=== PATIENT | male | born 1970 | race Caucasian/White ===

== ENCOUNTER 2016-08-18 10:46 | Emergency (ER) | payer OTHER, MEDICAID ==
[2016-08-18] MEDS ORDERED: KETOROLAC 60 MG/2 ML VIAL IM STA (11:44)
[2016-08-18] MEDS ORDERED: DEXAMETHASONE 10 MG/ML VIAL PO STA (11:44)
[2016-08-18] MEDS ORDERED: DEXAMETHASONE 10 MG/ML VIAL ONE (11:46)
[2016-08-18] MEDS ORDERED: KETOROLAC 60 MG/2 ML VIAL ONE (11:46)
--- NOTE | 2016-08-18 12:31 | ED Physician Documentation ---
PD HPI BACK PAIN - Stated complaint Stated Complaint: BACK INJURY - Chief complaint Chief Complaint: Back Pain - History obtained from History obtained from: Patient, Family (spouse) - History of Present Illness Timing - onset: Yesterday Timing - details: Still present Location: Lower, Right, Left Quality: Pain Associated symptoms: No: Fever, Weakness, Numbness, Incontinent of urine Worsened by: No: Movement, Twisting Contributing factors: Twisting Similar symptoms before: Has not had sx before - Additional information Additional information: The patient is a 46-year-old male who presents with lower back pain that started yesterday when he was stooping over and twisted his back. The pain is worse on the left than on the right. It is worse with sitting or standing, and improves when lying supine. He denies fever, urinary incontinence, numbness or weakness. He denies history of similar symptoms in the past. Review of Systems Constitutional: denies: Fever Nose: denies: Congestion Respiratory: denies: Dyspnea, Cough GI: denies: Abdominal Pain, Nausea, Vomiting : denies: Dysuria, Incontinent Skin: denies: Rash Musculoskeletal: reports: Back pain. denies: Neck pain Neurologic: denies: Focal weakness, Numbness, Headache PD PAST MEDICAL HISTORY - Past Medical History Past Medical History: No Cardiovascular: None Respiratory: None Neuro: None Endocrine/Autoimmune: None - Past Surgical History Past Surgical History: Yes - Present Medications Home Medications: Ambulatory Orders Medication Instructions Recorded Confirmed Cyclobenzaprine [Flexeril] 10 mg PO TID PRN #20 tablet 08/18/16 HYDROcod/ACETAM 5/325 [[place] 5/325] 1 - 2 ea PO Q6H PRN #20 tablet 08/18/16 - Allergies Allergies/Adverse Reactions: Allergies Allergy/AdvReac Type Severity Reaction Status Date / Time antiviral AdvReac Headache Uncoded 08/18/16 10:58 - Living Situation Living Situation: reports: With spouse/s.o. Living Arrangement: reports: At home - Social History Does the pt smoke?: No Smoking Status: Never smoker Does the pt drink ETOH?: Yes Does the pt have substance abuse?: No - Immunizations Immunizations are current?: Yes Immunizations: TDAP current <10years - POLST Patient has POLST: No Results - Vitals Vitals: Oxygen O2 Source Room air PD MEDICAL DECISION MAKING - ED course Complexity details: re-evaluated patient, considered differential, d/w patient, d/w family ED course: The patient's presentation is most consistent with low back strain, without sciatica. His presentation does not suggest epidural abscess, cauda equina syndrome, or spinal stenosis. Treatment in the emergency department included administration of ketorolac 60 mg IM and dexamethasone 10. He is being discharged with prescriptions for Flexeril and for Vicodin, 20 tablets. I discussed with him and his the expected course of injury, symptomatic treatment and outpatient follow-up, as well as potentially worrisome signs or symptoms that should prompt reevaluation in the emergency department. Departure - Departure Disposition: Home, Self Care Clinical Impression: Back pain Qualifiers: Back pain location: low back pain Chronicity: acute Back pain laterality: bilateral Sciatica presence: without sciatica Qualified Code(s): M54.5 - Low back pain Condition: Stable Instructions: ED Low Back Pain Injury Follow-Up: [facility] [Provider Group] Prescriptions: Cyclobenzaprine [Flexeril] 10 mg PO TID PRN #20 tablet PRN Reason: Spasms HYDROcod/ACETAM 5/325 [[place] 5/325] 1 - 2 ea PO Q6H PRN #20 tablet PRN Reason: Pain Comments: Apply icepack to your lower back intermittently for the next 3 or 4 days. You can use ibuprofen, up to 800 mg 3 times daily for its anti-inflammatory effect. You can use Vicodin as prescribed if needed for pain. You can use Flexeril as prescribed if needed for muscle spasms. Let pain be your guide to activity level. Follow up with your primary physician within 2 weeks. Call to schedule an appointment. Return to the emergency department if you develop increasing pain, fever, numbness or weakness, urinary incontinence, or otherwise worsening symptoms. Discharge Date/Time: 08/18/16 12:37
[2016-08-18 12:38] VITALS: BP 109/70
== END 2016-08-18 12:37 | disposition home or self-care (01) ==
LOC: ED 10:46
DX: M54.5 Low back pain (principal); X50.0XXA Overexertion from strenuous movement or load, initial encounter
CPT/HCPCS: 1040M; 96372; 99283

== ENCOUNTER 2016-10-13 16:38 | Outpatient (CLI) | payer MEDICAID ==
--- NOTE | 2016-10-14 18:41 | XRAY Report ---
EXAM: LEFT FOOT RADIOGRAPHY EXAM DATE: 10/13/2016 04:50 p.m. CLINICAL HISTORY: Left foot pain. COMPARISON: None. TECHNIQUE: 3 views. FINDINGS: Bones: Normal. No fractures or bone lesions. Joints: Normal. No subluxations. Soft Tissues: Normal. No soft tissue swelling. IMPRESSION: Normal foot radiography. [facility] Referring Provider Line: [phone] SITE ID: [id number]
== END 2016-10-13 16:39 | disposition home or self-care (01) ==
LOC: DI.N 16:38
PROVIDERS: ATTEND Family Medicine
DX: M79.672 Pain in left foot (principal)

== ENCOUNTER 2017-03-28 16:15 | Outpatient (CLI) | payer MEDICAID | END 2017-03-28 16:30 | disposition home or self-care (01) | LOC: RT.N 16:15 | PROVIDERS: ATTEND Family Medicine | DX: M70.88 Other soft tissue disorders related to use, overuse and pressure other site (principal) | CPT/HCPCS: 93005 ==

== ENCOUNTER 2017-03-29 08:00 | Outpatient (CLI) | payer MEDICAID ==
[2017-03-29 12:44] LABS: BASOPHILS % (AUTO) 0.4 %; EOSINOPHILS # (AUTO) 0.1 10^3/uL (0.0-0.7); EOSINOPHILS % (AUTO) 2.3 %; HGB - HEMOGLOBIN 15.8 g/dL (14.0-18.0); LYMPHOCYTES # (AUTO) 1.6 10^3/uL (1.5-3.5); LYMPHOCYTES % (AUTO) 35.7 %; MEAN CORPUSCULAR HEMOGLOBIN 31.5 pg (27.0-31.0); MEAN CORPUSCULAR HGB CONC 33.9 g/dL (32.0-36.0); MEAN CORPUSCULAR VOLUME 92.8 fL (80.0-94.0); MEAN PLATELET VOLUME 9.2 fL (7.4-11.4); MONOCYTES # (AUTO) 0.3 10^3/uL (0.0-1.0); NEUTROPHILS # (AUTO) 2.4 10^3/uL (1.5-6.6); NEUTROPHILS % (AUTO) 54.6 %; PLT - PLATELET COUNT 191 10^3/uL (130-450); RED BLOOD COUNT 5.02 10^6/uL (4.70-6.10); RED CELL DISTRIBUTION WIDTH 12.9 % (12.0-15.0); WHITE BLOOD COUNT 4.5 x10^3/uL (4.8-10.8)
[2017-03-29 13:53] LABS: ALBUMIN 4.1 g/dL (3.2-5.5); ALBUMIN/GLOBULIN RATIO 1.6 (1.0-2.2); ALKALINE PHOSPHATASE 50 IU/L (42-121); ALT ALANINE AMINOTRANSFERASE 55 IU/L (10-60); AST ASPARTATE AMINOTRANSFERASE 36 IU/L (10-42); BILIRUBIN,TOTAL 0.8 mg/dL (0.2-1.0); BUN - BLOOD UREA NITROGEN 15 mg/dL (6-20); CALCIUM 8.7 mg/dL (8.5-10.3); CARBON DIOXIDE - CO2 24 mmol/L (21-32); CHLORIDE 105 mmol/L (101-111); CHOL/HDL RATIO 3.7 (<5.0); CHOLESTEROL 162 mg/dL; CREATININE 1.1 mg/dL (0.6-1.2); GFR - MDRD 71 (>89); GLUCOSE 87 mg/dL (70-100); HDL CHOLESTEROL 44 mg/dL; LDL CHOLESTEROL,CALCULATED 101 mg/dL; LDL/HDL RATIO 2.3 (<3.6); SODIUM 136 mmol/L (135-145); TOTAL PROTEIN 6.7 g/dL (6.7-8.2); URIC ACID 7.3 mg/dL (2.6-7.2); VLDL CHOLESTEROL 17 mg/dL
[2017-03-29 13:56] LABS: CRP - C-REACTIVE PROTEIN < 1.0 mg/dL (0-1.0)
[2017-03-29 14:09] LABS: RHEUMATOID FACTOR NEGATIVE (Negative)
[2017-03-31 12:46] LABS: ANA SCREEN NEGATIVE (NEGATIVE)
== END 2017-03-29 08:01 | disposition home or self-care (01) ==
LOC: LAB.N 08:00
PROVIDERS: ATTEND Family Medicine
DX: R53.83 Other fatigue (principal); I10 Essential (primary) hypertension; M70.88 Other soft tissue disorders related to use, overuse and pressure other site; L40.9 Psoriasis, unspecified; G89.29 Other chronic pain
CPT/HCPCS: 36415; 80053; 80061; 83721; 84443; 84550; 85025; 86038; 86140; 86430

== ENCOUNTER 2017-04-11 14:55 | Emergency (ER) | payer MEDICAID ==
--- NOTE | 2017-04-11 14:57 | ED Physician Documentation ---
PD HPI LOWER EXT INJURY - Stated complaint Stated Complaint: R KNEE INJ - History obtained from History obtained from: Patient - History of Present Illness PD HPI LOW EXT INJURY LOCATION: Right, Knee Type of injury: Twist (he was just kneeling down and went to straighten up and felt sharp pain in knee and could not straighten it. [place] locked shut.) Where injury occurred: Home Timing - onset: Today Timing - details: Abrupt onset, Still present Worsened by: Moving (trying to straighten it at all) Associated symptoms: No: Weakness, Numbness Similar symptoms before: No diagnosis (has had it lock at times but can manipulate the knee and it unlocks in few seconds.) Review of Systems Skin: denies: Abrasion (s), Laceration (s) Neurologic: denies: Focal weakness, Numbness PD PAST MEDICAL HISTORY - Past Medical History Cardiovascular: None Respiratory: None Neuro: None Endocrine/Autoimmune: None - Past Surgical History Past Surgical History: Yes - Present Medications Home Medications: Ambulatory Orders Medication Instructions Recorded Confirmed Cyclobenzaprine [Flexeril] 10 mg PO TID PRN #20 tablet 08/18/16 HYDROcod/ACETAM 5/325 [[place] 5/325] 1 - 2 ea PO Q6H PRN #20 tablet 08/18/16 - Allergies Allergies/Adverse Reactions: Allergies Allergy/AdvReac Type Severity Reaction Status Date / Time wheat Allergy Unknown Verified 04/11/17 15:04 antiviral AdvReac Headache Uncoded 04/11/17 15:03 - Social History Does the pt smoke?: No Smoking Status: Never smoker Does the pt drink ETOH?: Yes Does the pt have substance abuse?: No - Immunizations Immunizations are current?: Yes Immunizations: TDAP current <10years - POLST Patient has POLST: No PD ED PE NORMAL - Vitals Vital signs reviewed: Yes - General General: Alert and oriented X 3, No acute distress (hurts when he tries to straighten the knee though), Well developed/nourished - Extremities Extremities: Other (right knee flexed and hurts to try to straighten. Feels locked. No gross deformity of the kneecap. No noted effusion. ) - Neuro Neuro: Alert and oriented X 3, No motor deficit, No sensory deficit Results - Vitals Vitals: Vital Signs - 24 hr 02/14/18 02/14/18 15:01 16:43 Temperature 36.7 C 36.3 C L Heart Rate 72 73 Respiratory 18 18 Rate Blood Pressure 131/89 H 122/79 O2 Saturation 97 96 Oxygen O2 Source Room air - Rads (name of study) knee Radiology: Prelim report reviewed, EMP read contemporaneously (some arthritic changes; no fracture nor dislocation) PD MEDICAL DECISION MAKING - ED course Complexity details: considered differential (Presume meniscal flap that is caught. Pain meds and maneuvers could not get it. Did articular injection of Lidocaine, which helped the paina nd so could manipulate it to go straight. He is feeling okay now. ), d/w patient Departure - Departure Disposition: 01 Home, Self Care Clinical Impression: Locking of right knee Meniscal injury Qualifiers: Encounter type: initial encounter Laterality: right Qualified Code(s): S83.8X1A - Sprain of other specified parts of right knee, initial encounter Condition: Stable Record reviewed to determine appropriate education?: Yes Instructions: ED Meniscal Injury Knee Poss Follow-Up: Michael Mesa MD [Primary Care Provider] - Cj Zaragoza MD [Provider Admit Priv/Credential] - Comments: He could use a wrap or soft knee brace for a couple of days. Use some ibuprofen or naproxen a couple times a day for the next few days for inflammation. Activity as tolerated. If you have recurring episodes of locking or if it gives out a lot, he could follow-up with orthopedics regarding possible repair of the torn meniscus. Otherwise normal activity. Discharge Date/Time: 04/11/17 16:44
[2017-04-11] MEDS ORDERED: KETOROLAC 60 MG/2 ML VIAL IM STA (15:10)
[2017-04-11] MEDS ORDERED: METHOCARBAMOL 500 MG TABLET PO STA (15:11)
[2017-04-11] MEDS ORDERED: HYDROcod/ACETAM 5/325 MG TABLET PO STA (15:11)
--- NOTE | 2017-04-11 16:00 | XRAY Report ---
EXAM: RIGHT KNEE RADIOGRAPHY EXAM DATE: 04/11/2017 03:46 PM. CLINICAL HISTORY: Knee hurts and feels stuck flexion. COMPARISON: None. TECHNIQUE: 4 views. FINDINGS: Bones: No fracture or destructive bony abnormality. Joints: The knee is imaged in flexion. There is no dislocation. Soft Tissues: Unremarkable. IMPRESSION: No fracture or distractive bony process. [facility] Referring Provider Line: [phone] SITE ID: [id number]
[2017-04-11 16:44] VITALS: BP 122/79
== END 2017-04-11 16:44 | disposition home or self-care (01) ==
LOC: ED 14:55
DX: S83.8X1A Sprain of other specified parts of right knee, initial encounter (principal); M23.91 Unspecified internal derangement of right knee; X50.9XXA Other and unspecified overexertion or strenuous movements or postures, initial encounter; Y92.019 Unspecified place in single-family (private) house as the place of occurrence of the external cause
CPT/HCPCS: 73562; 96372; 99283; A9270

== ENCOUNTER 2017-07-18 12:54 | Emergency (ER) | payer MEDICAID ==
[2017-07-18 13:31] VITALS: BP 151/118
--- NOTE | 2017-07-18 13:41 | ED Physician Documentation ---
PD HPI FOCAL NEURO - Stated complaint Stated Complaint: LEFT ARM NUMBNESS/DIZZY - Chief complaint Chief Complaint: Neuro - History obtained from History obtained from: Patient - History of Present Illness Timing - onset: How many hours ago (1), Today Timing - duration: Minutes (10-15) Timing - details: Abrupt onset (while sitting at computer.), Now resolved Severity of deficit: Moderate (he had onst of left arm feeling numb and heavy, but not weak and was able to use it without fumbling, but no symptoms of leg nor face. Also felt lightheaded. No vertigo dizziness.) Numbness: Arm, Left Associated symptoms: No: Headache, Nausea / vomiting, Syncope (felt lightheaded) , Chest pain Contributing factors: negative: Vascular dz, Atrial fibrillation Baseline status: positive: A&OX3, ambulatory, indep Similar symptoms before: Has not had sx before Recently seen: Not recently seen Review of Systems Constitutional: denies: Fever Nose: denies: Rhinorrhea / runny nose, Congestion Throat: denies: Sore throat Cardiac: denies: Chest pain / pressure, Palpitations, Pedal edema, Calf pain Respiratory: denies: Dyspnea, Cough GI: denies: Abdominal Pain, Nausea, Vomiting, Diarrhea Neurologic: reports: Numbness, Near syncope. denies: Generalized weakness, Focal weakness, Syncope, Confused, Altered mental status, Headache, Head injury PD PAST MEDICAL HISTORY - Past Medical History Cardiovascular: None Respiratory: None Neuro: None Endocrine/Autoimmune: None GI: None HEENT: None Psych: None Musculoskeletal: Gout Derm: None - Past Surgical History Past Surgical History: Yes - Present Medications Home Medications: Ambulatory Orders Medication Instructions Recorded Confirmed No Known Home Medications [No 07/18/17 07/18/17 Known Home Medications] - Allergies Allergies/Adverse Reactions: Allergies Allergy/AdvReac Type Severity Reaction Status Date / Time wheat Allergy Unknown Verified 04/11/17 15:04 antiviral AdvReac Headache Uncoded 04/11/17 15:03 - Social History Does the pt smoke?: No Smoking Status: Never smoker Does the pt drink ETOH?: No Does the pt have substance abuse?: No - Family History Family history: reports: CAD. denies: Sudden , Venous thromboembolism - Immunizations Immunizations are current?: Yes Immunizations: TDAP current <10years - POLST Patient has POLST: No PD ED PE NORMAL - Vitals Vital signs reviewed: Yes - General General: Alert and oriented X 3, No acute distress, Well developed/nourished - HEENT HEENT: Atraumatic, Ears normal, Pharynx benign - Neck Neck: Supple, no meningeal sign, No adenopathy, No JVD, No bruit - Cardiac Cardiac: RRR, No murmur - Respiratory Respiratory: Clear bilaterally - Abdomen Abdomen: Soft, Non tender - Back Back: No CVA TTP - Derm Derm: Normal color, Warm and dry, No rash - Extremities Extremities: No deformity, No tenderness to palpate, Normal ROM s pain, No edema , No calf tenderness / cord - Neuro Neuro: Alert and oriented X 3, 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 No: ST elevation c/w ischemia, ST depression Compare to prior EKG: Old EKG unavailable - Labs Labs: Laboratory Tests 07/18/17 07/18/17 07/18/17 14:36 14:36 14:36 WBC 6.1 RBC 4.97 Hgb 15.8 Hct 45.2 MCV 91.1 MCH 31.8 H MCHC 34.9 RDW 13.2 Plt Count 228 MPV 7.7 Neut # 4.4 Lymph # 1.1 L [place] # 0.4 Eos # 0.0 Baso # 0.0 Absolute Nucleated RBC 0.00 Nucleated RBC % 0.0 Sodium 138 Potassium 3.7 Chloride 104 Carbon Dioxide 27 Anion Gap 7.0 BUN 8 Creatinine 0.7 Estimated GFR (MDRD) 120 Glucose 95 Calcium 9.1 Magnesium 2.3 Total Bilirubin 0.8 AST 47 H ALT 73 H Alkaline Phosphatase 59 Troponin I < 0.04 Total Protein 6.7 Albumin 4.3 Globulin 2.4 Albumin/Globulin Ratio 1.8 Lipase 36 PD MEDICAL DECISION MAKING - ED course Complexity details: considered differential (no signs MA. Heart rhythm good. Consider arrhythmia. Did not sound neuro, more cardiovascular. ), d/w patient Departure - Departure Disposition: 01 Home, Self Care Clinical Impression: Left arm numbness, Near syncope Condition: Stable Record reviewed to determine appropriate education?: Yes Instructions: ED Near Syncope Unkn Follow-Up: Michael Mesa MD [Primary Care Provider] - Comments: Your EKG and blood tests are normal here. It is not clear the cause of your symptoms he had. No signs of heart attack or more serious cause. Consider the possibility of a brief abnormal heart rhythm; and these are usually not life- threatening. If you have repeated episodes follow-up, follow-up with your primary care for potential director of cardiac cath lab that you wear for several days to consider abnormal heart rhythm. Recheck if other symptoms develop as well. Discharge Date/Time: 07/18/17 16:05
[2017-07-18 14:40] LABS: BASOPHILS % (AUTO) 0.8 %; EOSINOPHILS % (AUTO) 0.8 %; HGB - HEMOGLOBIN 15.8 g/dL (14.0-18.0); LYMPHOCYTES # (AUTO) 1.1 10^3/uL (1.5-3.5); LYMPHOCYTES % (AUTO) 18.9 %; MEAN CORPUSCULAR HEMOGLOBIN 31.8 pg (27.0-31.0); MEAN CORPUSCULAR HGB CONC 34.9 g/dL (32.0-36.0); MEAN CORPUSCULAR VOLUME 91.1 fL (80.0-94.0); MEAN PLATELET VOLUME 7.7 fL (7.4-11.4); MONOCYTES # (AUTO) 0.4 10^3/uL (0.0-1.0); MONOCYTES % (AUTO) 6.4 %; NEUTROPHILS # (AUTO) 4.4 10^3/uL (1.5-6.6); NEUTROPHILS % (AUTO) 73.1 %; PLT - PLATELET COUNT 228 10^3/uL (130-450); RED BLOOD COUNT 4.97 10^6/uL (4.70-6.10); RED CELL DISTRIBUTION WIDTH 13.2 % (12.0-15.0); WHITE BLOOD COUNT 6.1 x10^3/uL (4.8-10.8)
[2017-07-18 14:57] LABS: ALBUMIN 4.3 g/dL (3.2-5.5); ALBUMIN/GLOBULIN RATIO 1.8 (1.0-2.2); BILIRUBIN,TOTAL 0.8 mg/dL (0.2-1.0); CALCIUM 9.1 mg/dL (8.5-10.3); CREATININE 0.7 mg/dL (0.6-1.2); MAGNESIUM 2.3 mg/dL (1.7-2.8); TOTAL PROTEIN 6.7 g/dL (6.7-8.2)
== END 2017-07-18 16:05 | disposition home or self-care (01) ==
LOC: ED 12:54
DX: R20.0 Anesthesia of skin (principal); R55 Syncope and collapse
CPT/HCPCS: 36415; 80053; 83690; 83735; 84484; 85025; 93005; 99283

== ENCOUNTER 2017-09-09 19:20 | Emergency (ER) | payer MEDICAID ==
[2017-09-09] MEDS ORDERED: BACITRACIN OINT TOP STA (20:25)
[2017-09-09] MEDS ORDERED: TETANUS/DIPHTHERIA/PERTUSSIS 0.5 ML SYRINGE IM ONE (20:25)
--- NOTE | 2017-09-09 20:29 | ED Physician Documentation ---
PD HPI HEAD INJURY - Stated complaint Stated Complaint: FACE LAC - Chief complaint Chief Complaint: Laceration - History obtained from History obtained from: Patient - History of Present Illness Mechanism of head injury: Laceration (47-year-old gentleman with unknown tetanus status, he was volunteering and moving a refrigerator and piece fell off the top and hit him just to the right of the nose and has a laceration there and then it bounced off and hit the forearm where he has a little scrape.) Review of Systems Constitutional: reports: Reviewed and negative Throat: reports: Reviewed and negative Cardiac: reports: Reviewed and negative PD PAST MEDICAL HISTORY - Past Medical History Past Medical History: Yes Cardiovascular: None Respiratory: None Neuro: None Endocrine/Autoimmune: None GI: None HEENT: None Psych: None Musculoskeletal: Gout Derm: None - Past Surgical History Past Surgical History: Yes - Present Medications Home Medications: Ambulatory Orders Medication Instructions Recorded Confirmed No Known Home Medications [No 07/18/17 07/18/17 Known Home Medications] - Allergies Allergies/Adverse Reactions: Allergies Allergy/AdvReac Type Severity Reaction Status Date / Time wheat Allergy Unknown Verified 09/09/17 19:41 antiviral AdvReac Headache Uncoded 09/09/17 19:41 - Social History Does the pt smoke?: No Smoking Status: Never smoker Does the pt drink ETOH?: No Does the pt have substance abuse?: No - Immunizations Immunizations are current?: Yes Immunizations: TDAP current <10years - POLST Patient has POLST: No PD ED PE NORMAL - Vitals Vital signs reviewed: Yes - General General: Alert and oriented X 3, No acute distress - HEENT HEENT: Other (There is a little gouge out just to the right of the naris on the face, over the labial crease. Nothing that needs suturing.) - Extremities Extremities: Other (There is a puncture wound on the lateral distal radius part of the forearm without underlying tenderness or limited range of motion. This is on the left.) - Neuro Neuro: Alert and oriented X 3, Normal speech Results - Vitals Vitals: Vital Signs - 24 hr 09/09/17 19:39 Temperature 36.5 C Heart Rate 72 Respiratory 18 Rate Blood Pressure 149/95 H O2 Saturation 97 Oxygen O2 Source Room air PD MEDICAL DECISION MAKING - Sepsis Event Vital Signs: Vital Signs - 24 hr 07/15/18 19:39 Temperature 36.5 C Heart Rate 72 Respiratory 18 Rate Blood Pressure 149/95 H O2 Saturation 97 Oxygen O2 Source Room air Departure - Departure Disposition: 01 Home, Self Care Clinical Impression: Abrasion Condition: Good Record reviewed to determine appropriate education?: Yes Instructions: ED Abrasion Comments: Apply bacitracin ointment which is available [id number] to the wound 3 times a day. Return if worse or if new symptoms develop. Your blood pressure was elevated today on check into the emergency department. This does not mean that you have hypertension, it is a common phenomenon to come to the emergency department and have elevated blood pressure. I recommend that you see your primary care physician within the week to have it rechecked when you are feeling better.
[2017-09-09 20:58] VITALS: BP 127/90
== END 2017-09-09 20:56 | disposition home or self-care (01) ==
LOC: ED 19:20
DX: S01.21XA Laceration without foreign body of nose, initial encounter (principal); S51.832A Puncture wound without foreign body of left forearm, initial encounter; W20.8XXA Other cause of strike by thrown, projected or falling object, initial encounter; Y93.89 Activity, other specified; R03.0 Elevated blood-pressure reading, without diagnosis of hypertension
CPT/HCPCS: 90471; 90715; 99282; 99283; A9270

== ENCOUNTER 2018-01-02 17:05 | Outpatient (CLI) | payer MEDICAID | END 2018-01-02 17:06 | disposition critical access hospital (66) | LOC: EMS 17:05 | PROVIDERS: ATTEND Surgery | DX: R42 Dizziness and giddiness (principal); R06.02 Shortness of breath | CPT/HCPCS: A0425; A0427; A0999 ==

== ENCOUNTER 2018-01-02 17:27 | Emergency (ER) | payer MEDICAID ==
--- NOTE | 2018-01-02 18:02 | ED Physician Documentation ---
PD HPI CHEST PAIN - Stated complaint Stated Complaint: SOA/DIZZINESS - Chief complaint Chief Complaint: Cardiac - History obtained from History obtained from: Patient, Family, EMS - History of Present Illness Timing - onset: Today (Ate squash then starting to feel short of breath and dizzy. And felt HR up. No hx heart issues.) Timing - details: Abrupt onset Quality: Other (no pain) Review of Systems Ten Systems: 10 systems reviewed and negative Constitutional: denies: Fever, Chills Eyes: denies: Loss of vision, Decreased vision Ears: denies: Loss of hearing, Ear pain Nose: denies: Rhinorrhea / runny nose, Congestion Cardiac: reports: Palpitations. denies: Chest pain / pressure, Pedal edema, Calf pain Respiratory: reports: Dyspnea PD PAST MEDICAL HISTORY - Past Medical History Cardiovascular: None Respiratory: None Neuro: None Endocrine/Autoimmune: None GI: None HEENT: None Psych: None Musculoskeletal: Gout Derm: None - Past Surgical History Past Surgical History: Yes - Present Medications Home Medications: Ambulatory Orders Medication Instructions Recorded Confirmed No Known Home Medications 07/18/17 07/18/17 - Allergies Allergies/Adverse Reactions: Allergies Allergy/AdvReac Type Severity Reaction Status Date / Time wheat Allergy Unknown Verified 09/09/17 19:41 antiviral AdvReac Headache Uncoded 09/09/17 19:41 - Social History Does the pt smoke?: No Smoking Status: Never smoker Does the pt drink ETOH?: No Does the pt have substance abuse?: No - Family History Family history: reports: Non contributory - Immunizations Immunizations are current?: Yes Immunizations: TDAP current <10years - POLST Patient has POLST: No PD ED PE NORMAL - Vitals Vital signs reviewed: Yes - General General: Alert and oriented X 3, No acute distress - HEENT HEENT: PERRL, EOMI - Neck Neck: Supple, no meningeal sign, No bony TTP - Cardiac Cardiac: No murmur, Other (Rapid and irregular) - Respiratory Respiratory: No respiratory distress, Clear bilaterally - Back Back: No CVA TTP, No spinal TTP - Extremities Extremities: No edema, No calf tenderness / cord - Neuro Neuro: Alert and oriented X 3, Normal speech Results - Vitals Vitals: Vital Signs - 24 hr 01/02/18 01/02/18 01/02/18 17:28 17:45 18:00 Temperature 36.6 C Heart Rate 137 H 136 H 145 H Respiratory 18 16 24 Rate Blood Pressure 112/86 H 113/99 H 156/100 H O2 Saturation 97 100 100 01/02/18 01/02/18 01/02/18 18:30 18:35 18:40 Temperature Heart Rate 144 H 114 H 97 Respiratory 20 18 20 Rate Blood Pressure 121/108 H 91/70 110/86 H O2 Saturation 99 99 99 01/02/18 01/02/18 01/02/18 18:45 18:50 18:55 Temperature Heart Rate 91 101 H 94 Respiratory 20 Rate Blood Pressure 107/64 120/95 H 104/76 O2 Saturation 96 98 01/02/18 01/02/18 01/02/18 19:22 19:30 19:43 Temperature Heart Rate 123 H 100 109 H Respiratory 16 19 15 Rate Blood Pressure 82/71 L 112/78 103/80 O2 Saturation 97 98 97 01/02/18 01/02/18 01/02/18 20:19 20:24 20:32 Temperature Heart Rate 108 H 119 H Respiratory 19 18 21 Rate Blood Pressure 110/82 H 114/90 H 131/112 H O2 Saturation 100 100 100 01/02/18 01/02/18 20:37 21:03 Temperature Heart Rate 80 78 Respiratory 15 17 Rate Blood Pressure 119/87 H 114/71 O2 Saturation 100 99 Oxygen O2 Source Room air - EKG (time done) 1738 Rate: Rate (enter#) (136) Rhythm: Atrial fibrillation [place]: Normal QRS: Normal Ischemia: Non specific changes Computer interpretation: Agree with computer 2055 Rate: Rate (enter#) (81) Rhythm: NSR [place]: Normal Intervals: Normal [place] QRS: Normal Ischemia: Normal ST segments Computer interpretation: Agree with computer - Labs Labs: Laboratory Tests 01/02/18 01/02/18 01/02/18 18:00 18:00 18:00 WBC 8.1 RBC 4.87 Hgb 15.5 Hct 44.6 MCV 91.5 MCH 31.7 H MCHC 34.7 RDW 12.6 Plt Count 255 MPV 7.6 Neut # (Auto) 5.3 Lymph # (Auto) 1.9 [place] # (Auto) 0.6 Eos # (Auto) 0.3 Baso # (Auto) 0.0 Absolute Nucleated RBC 0.00 Nucleated RBC % 0.0 Sodium 139 Potassium 4.1 Chloride 106 Carbon Dioxide 23 Anion Gap 10.0 BUN 10 Creatinine 0.9 Estimated GFR (MDRD) 90 Glucose 92 Calcium 8.4 L Magnesium 2.2 Total Bilirubin 0.7 AST 32 ALT 43 Alkaline Phosphatase 76 Troponin I < 0.04 Total Protein 6.7 Albumin 3.7 Globulin 3.0 Albumin/Globulin Ratio 1.2 Lipase 37 TSH 01/02/18 18:00 WBC RBC Hgb Hct MCV MCH MCHC RDW Plt Count MPV Neut # (Auto) Lymph # (Auto) [place] # (Auto) Eos # (Auto) Baso # (Auto) Absolute Nucleated RBC Nucleated RBC % Sodium Potassium Chloride Carbon Dioxide Anion Gap BUN Creatinine Estimated GFR (MDRD) Glucose Calcium Magnesium Total Bilirubin AST ALT Alkaline Phosphatase Troponin I Total Protein Albumin Globulin Albumin/Globulin Ratio Lipase TSH 3.01 Procedures - Procedural sedation Sedation prep: Informed consent, Time out completed, Last meal (1pm), PE performed, AHA 1 - healthy Sedation medications: etomidate (10mg IVP x1) Patient status during sedation: Responds to tactile, Vitals remained stable, Maintained airway, Recovered uneventfully Sedation recovery: Recovered uneventfully - Cardioversion 1 Time of attempt: 20:25 Indication: Tachyarrhythmia Risks, benefits, alternatives explained to: Pt Prep: IV, O2, restaurant greeter, Pulse ox Meds: Etomidate (10mg IVP) CS via: Pads, AP approach Sync: Biphasic (He was shocked initially at 50 J which was unsuccessful, then 100 J, unsuccessful, then 200 J which converted him to sinus rhythm.) Post cardioversion rhythm: NSR Performed by: ED MD [facility] MEDICAL DECISION MAKING - ED course ED course: 47-year-old gentleman presents with new onset A. fib only a few hours of duration. We will check labs and give him some diltiazem for rate control and trial procainamide drip. He had some borderline episodes of hypotension after that and was administered IV fluids. The procainamide drip had no effect on rhythm and after discussion and informed consent he was sedated and cardioverted on 200 J. This was the third shock. He was asymptomatic after that. Departure - Departure Disposition: 01 Home, Self Care Clinical Impression: Atrial fibrillation Qualifiers: Atrial fibrillation type: paroxysmal Qualified Code(s): I48.0 - Paroxysmal atrial fibrillation Condition: Good Record reviewed to determine appropriate education?: Yes Instructions: Atrial Fibrillation Dc Comments: Follow-up with your physician, further testing is in order including but not limited to echocardiography. Return for new or worsening symptoms.
[2018-01-02] MEDS ORDERED: ASPIRIN CHEW 81 MG TABLET PO STA (18:05)
[2018-01-02] MEDS ORDERED: PROCAINAMIDE 1,000 MG in SODIUM CHLORIDE 0.9% 240 ML IV STA (18:06)
[2018-01-02] MEDS ORDERED: diltiaZEM INJ 5 MG/ML VIAL IVP STA ×2 (18:06→19:14)
[2018-01-02 18:08] LABS: BASOPHILS % (AUTO) 0.6 %; EOSINOPHILS # (AUTO) 0.3 10^3/uL (0.0-0.7); EOSINOPHILS % (AUTO) 3.1 %; HGB - HEMOGLOBIN 15.5 g/dL (14.0-18.0); LYMPHOCYTES # (AUTO) 1.9 10^3/uL (1.5-3.5); LYMPHOCYTES % (AUTO) 23.2 %; MEAN CORPUSCULAR HEMOGLOBIN 31.7 pg (27.0-31.0); MEAN CORPUSCULAR HGB CONC 34.7 g/dL (32.0-36.0); MEAN CORPUSCULAR VOLUME 91.5 fL (80.0-94.0); MEAN PLATELET VOLUME 7.6 fL (7.4-11.4); MONOCYTES # (AUTO) 0.6 10^3/uL (0.0-1.0); MONOCYTES % (AUTO) 7.3 %; NEUTROPHILS # (AUTO) 5.3 10^3/uL (1.5-6.6); NEUTROPHILS % (AUTO) 65.8 %; PLT - PLATELET COUNT 255 10^3/uL (130-450); RED BLOOD COUNT 4.87 10^6/uL (4.70-6.10); RED CELL DISTRIBUTION WIDTH 12.6 % (12.0-15.0); WHITE BLOOD COUNT 8.1 x10^3/uL (4.8-10.8)
[2018-01-02 18:22] LABS: ALBUMIN 3.7 g/dL (3.2-5.5); ALBUMIN/GLOBULIN RATIO 1.2 (1.0-2.2); BILIRUBIN,TOTAL 0.7 mg/dL (0.2-1.0); CALCIUM 8.4 mg/dL (8.5-10.3); CREATININE 0.9 mg/dL (0.6-1.2); MAGNESIUM 2.2 mg/dL (1.7-2.8); TOTAL PROTEIN 6.7 g/dL (6.7-8.2)
[2018-01-02] MEDS ORDERED: SODIUM CHLORIDE 0.9% 500 ML IV ONE (19:53)
[2018-01-02] MEDS ORDERED: ETOMIDATE 40 MG/20 ML VIAL IVP ONE (20:04)
[2018-01-02] MEDS ORDERED: ETOMIDATE 40 MG/20 ML VIAL IVP STA (20:34)
[2018-01-02 21:35] VITALS: BP 133/82
--- NOTE | 2018-01-09 08:55 | ED Physician Documentation ---
ED Addendum - Addendum Addendum: 01/09/18 08:54 Time spent by me for procedural sedation was 15 minutes
== END 2018-01-02 21:20 | disposition home or self-care (01) ==
LOC: EDUNIT# → ED 17:27
DX: I48.0 Paroxysmal atrial fibrillation (principal)
CPT/HCPCS: 36415; 80053; 83690; 83735; 84443; 84484; 85025; 92960; 93005; 96365; 96375; 99152; 99284; 99285; A9270; J2690

== ENCOUNTER 2018-01-04 13:55 | Outpatient (CLI) | payer MEDICAID | END 2018-01-04 13:56 | disposition home or self-care (01) | LOC: RT.N 13:55 | PROVIDERS: ATTEND Family Medicine | DX: I48.0 Paroxysmal atrial fibrillation (principal) | CPT/HCPCS: 93005 ==

== ENCOUNTER 2019-09-09 10:15 | Outpatient (CLI) | payer MEDICAID ==
[2019-09-09 12:02] LABS: BASOPHILS % (AUTO) 0.2 %; EOSINOPHILS # (AUTO) 0.1 10^3/uL (0.0-0.7); EOSINOPHILS % (AUTO) 1.9 %; HGB - HEMOGLOBIN 15.6 g/dL (14.0-18.0); LYMPHOCYTES # (AUTO) 1.8 10^3/uL (1.5-3.5); LYMPHOCYTES % (AUTO) 33.6 %; MEAN CORPUSCULAR HEMOGLOBIN 31.5 pg (27.0-31.0); MEAN CORPUSCULAR HGB CONC 33.6 g/dL (32.0-36.0); MEAN CORPUSCULAR VOLUME 93.7 fL (80.0-94.0); MEAN PLATELET VOLUME 10.2 fL (7.4-11.4); MONOCYTES # (AUTO) 0.4 10^3/uL (0.0-1.0); NEUTROPHILS % (AUTO) 56.1 %; PLT - PLATELET COUNT 246 10^3/uL (130-450); RED BLOOD COUNT 4.95 10^6/uL (4.70-6.10); RED CELL DISTRIBUTION WIDTH 12.1 % (12.0-15.0); WHITE BLOOD COUNT 5.4 x10^3/uL (4.8-10.8)
[2019-09-09 12:35] LABS: ALBUMIN 4.2 g/dL (3.2-5.5); ALKALINE PHOSPHATASE 57 IU/L (42-121); ALT ALANINE AMINOTRANSFERASE 56 IU/L (10-60); AST ASPARTATE AMINOTRANSFERASE 37 IU/L (10-42); BUN - BLOOD UREA NITROGEN 16 mg/dL (6-20); CARBON DIOXIDE - CO2 28 mmol/L (21-32); CHLORIDE 102 mmol/L (101-111); CHOL/HDL RATIO 4.2 (<5.0); CHOLESTEROL 175 mg/dL; CREATININE 1.2 mg/dL (0.6-1.2); GLUCOSE 98 mg/dL (70-100); HDL CHOLESTEROL 42 mg/dL; LDL CHOLESTEROL,CALCULATED 102 mg/dL; LDL/HDL RATIO 2.4 (<3.6); SODIUM 138 mmol/L (135-145); TOTAL PROTEIN 6.3 g/dL (6.7-8.2); URIC ACID 7.1 mg/dL (2.6-7.2); VLDL CHOLESTEROL 31 mg/dL
[2019-09-09 12:44] LABS: HB2 TOTAL 16.7 g/dL; HEMOGLOBIN A1C 0.55 g/dL; HEMOGLOBIN A1C % 5.2 % (4.6-6.2)
[2019-09-09 14:29] LABS: FREE T4 (FREE THYROXINE) 0.96 ng/dL (0.58-1.64)
== END 2019-09-09 23:59 | disposition home or self-care (01) ==
LOC: LAB.WCP 10:15
PROVIDERS: ATTEND Physician Assistant
DX: Z00.00 Encounter for general adult medical examination without abnormal findings (principal); M10.9 Gout, unspecified
CPT/HCPCS: 36415; 80053; 80061; 83036; 83721; 84439; 84443; 84550; 85025

== ENCOUNTER 2019-11-07 14:53 | Outpatient (CLI) | payer MEDICAID ==
--- NOTE | 2019-11-07 15:52 | SLEEP CARE CONSULTATION ---
Information from patient questionnaire entered by Marcia Rizzo. I have reviewed and concur with the information entered by Marcia Rizzo. This document represents the service I personally performed and the decisions made by me, Abbi Redman ARNP. History of Present Illness Service Date and Time: 11/07/2019 1453 Reason for Visit: New patient Chief Complaint: reports: Unrefreshed sleep, Snoring, Excessive daytime sleepiness, Observed pauses in breathing (snorting while sleeping), Frequent awakenings at night, Other (no normal sleep pattern, will go 24 hrs without sleep). denies: Insomnia, Fatigue Date of Onset: unknown Usual bedtime: 0200 Time it takes to fall asleep: 2-3 hours Snores at night: Yes (per ) Observed to quit breathing while asleep: Yes (unsure) Sleeps alone due to snoring: No Number of times waking at night: 2 Reasons for waking at night: reports: Pain, Bathroom. denies: Choking, Snoring, Gasping for air Toss, Turn, or Twitch while sleeping: Yes Recalls having dreams: No Usually gets out of bed at: when I have to Feels refreshed in the morning: No Morning headache: No Sleepy or fatigued during the day: Yes (sometimes) Ever fallen asleep while driving: No Takes day naps: Yes Dreams during day naps: No Prior sleep studies: No Additional HPI information: I had the pleasure of seeing CHELI EVANS today regarding the possibility of him having a sleep disorder. His current complaints are unrefreshed sleep, loud snoring and snorting while sleeping, possible pauses in breathing, excessive daytime sleepiness and frequent night awakenings. He saw his PCP for some leg swelling and they checked out his heart. He was also referred here for a sleep study because of his snoring and daytime sleepiness. He did have an episode of atrial fibrillation that they had to use cardioversion to correct, he is not on anticoagulation. His states he has an abnormal sleeping pattern and has for years. He will go about 24 hours without sleep and then go to be but only sleep 2-3 hours. He states he normally wakes up after sleeping 2-3 hours, is awake for some time and will then go back to sleep. He also takes naps. He sometimes wakes up feeling rested, but not normally. He has a history of depression, GERD, gout and psoriasis. He feels he is doing better with his GERD symptoms since eliminating wheat gluten from his diet. - Parasomnia Symptoms Ever been unable to move upon waking from sleep: No Walks in sleep: Yes (as a child only) Talks in sleep: Yes Ever acted out dreams in sleep: Yes Ever felt weak in the knees when startled or emotional: No Bothered by creepy, crawly, restless sensations in legs: No Problems with memory or concentration: No Subjective Initial [place] Sleepiness Scale score: 13 (in 2019) Past Medical History Past Medical History: reports: Gout (i have dealt with this), Arrythmia, Depression (no medication now), GERD (gave up gluten and now no problems), Other (psoriasis causes pain and ichiness). 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 Patient is and lives in [place]. Have you smoked in the past 12 months: No Alcohol use: No Caffeine use: Yes Caffeine amount and frequency: lots of tea Family History Family history of sleep disordered breathing: No Family Hx Sleep Apnea: Father: Snoring Allergies and Home Medications Drug allergies reviewed: Yes (antiviral vaccine) Home medication list reviewed: Yes Allergy and home medication list: Cetrizine as needed for allergies Vitamins Review of Systems Weight gain over past 5 years: 50 Weight loss over past 5 years: 40 Cardiovascular: reports: leg or foot swelling. denies: high blood pressure, palpitations, chest pain, irregular heart rate or pulse Respiratory: denies: shortness of breath, chronic cough Gastrointestinal: reports: heartburn. denies: difficulty swallowing Urinary: denies: impotence Neurological: denies: headaches, seizure, head trauma, speech dysfunction, gait or balance problems Psychiatric: reports: depression, claustrophobia (not a big problem). denies: Attention Deficit Hyperactivity, anxiety, mood disorder Ear/Nose/Throat: reports: nasal congestion, wisdom teeth removed. denies: sinus problems, nose bleeds, dry mouth/throat, hoarseness, injury to nose, tonsillectomy Endocrine: reports: sluggishness, too hot or cold, increased appetite. denies: thyroid disease Musculoskeletal: reports: joint pain, mobility problems. denies: muscle pain or cramping Immunologic: reports: sneezing, rash, itching, allergies to food or environment Physical Exam Blood Pressure: 120/70 Cuff size: long Heart Rate: 67 O2 Saturation: 98 Height: 6 ft Weight: 250 lb Body Mass Index: 33.9 BMI Classification: Obese Neck circumference: 18.5 (inches) HEENT: No craniofacial malformation Nostrils: patent to airflow Turbinates: swollen Septum: midline Mouth and throat: narrow oropharynx Soft palate: normal Hard palate: normal Uvula: normal Uvula visualization: 25% Mallampati Class III Tongue: normal in size Tonsils: 1+ Chin and jaw: normal size and position Neck: normal w/o lymphadenopathy or thyromegaly Heart: regular rate and rhythm Lungs: clear bilaterally Impression and Plan 1. Suspected Obstructive Sleep Apnea-Hypopnea Syndrome, as suggested by a history of loud and irregular snoring, frequent awakening during the night, unrefreshed sleep, and excessive daytime sleepiness. I reviewed with patient that a narrow oropharynx and obesity are common predisposing factors for obstructive sleep apnea-hypopnea syndrome. I recommend proceeding to polysomnography to confirm the diagnosis and to assess severity. If the patient has significant sleep disordered breathing, a manual CPAP titration study will also be performed to find the optimal treatment pressure. I informed the patient of what the sleep studies involve and after some discussion, obtained agreement to proceed. The pathophysiology of obstructive sleep apnea-hypopnea syndrome was discussed with the patient and health risks of cardiovascular and cerebrovascular disease if not treated. AAS brochure for obstructive sleep apnea-hypopnea syndrome given and reviewed. Risks of drowsy driving discussed in detail and patient advised to avoid long distance driving and to caul fat puller at the first sign of drowsiness. Patient agreed to plan. * Schedule polysomnography +- manual CPAP titration study. * Avoid long distance driving or driving when feeling sleepy. * Avoid alcohol, sedative and muscle relaxant around bedtime. * Attempt to lose weight. * Review instructions provided by trained office staff on how to prepare for the sleep study. * Return for follow-up after sleep study completed. Visit Type: In Office Time Spent with Patient (minutes): 40 Provider Statement: I spent 100% of the Face to Face Visit with the patient with greater than 50% spent counseling the patient and coordination of care.
[2019-11-07 15:53] VITALS: BP 120/70
== END 2019-11-07 14:54 | disposition home or self-care (01) ==
LOC: SC 14:53
PROVIDERS: ATTEND Nurse Practitioner Family
DX: G47.8 Other sleep disorders (principal); G47.10 Hypersomnia, unspecified; R06.83 Snoring; R06.81 Apnea, not elsewhere classified; E66.9 Obesity, unspecified; Z68.33 Body mass index [BMI] 33.0-33.9, adult; I49.9 Cardiac arrhythmia, unspecified; F32.9 Major depressive disorder, single episode, unspecified
CPT/HCPCS: 99204; 99212

== ENCOUNTER 2019-12-17 20:24 | Outpatient (CLI) | payer MEDICAID | END 2019-12-17 20:25 | disposition home or self-care (01) | LOC: SC 20:24 | PROVIDERS: ATTEND Nurse Practitioner Family | DX: G47.33 Obstructive sleep apnea (adult) (pediatric) (principal); G47.61 Periodic limb movement disorder; E66.9 Obesity, unspecified; Z68.33 Body mass index [BMI] 33.0-33.9, adult | CPT/HCPCS: 95810 ==

== ENCOUNTER 2019-12-18 08:00 | Outpatient (CLI) | payer MEDICAID ==
[2019-12-18 12:21] LABS: THYROID STIMULATING HORMONE 4.65 uIU/mL (0.34-5.60)
[2019-12-18 12:23] LABS: FREE T3 3.75 pg/mL (2.5-3.9); FREE T4 (FREE THYROXINE) 1.06 ng/dL (0.58-1.64)
== END 2019-12-18 23:59 | disposition home or self-care (01) ==
LOC: LAB.WCP 08:00
PROVIDERS: ATTEND Physician Assistant
DX: R79.89 Other specified abnormal findings of blood chemistry (principal)
CPT/HCPCS: 36415; 84439; 84443; 84481

== ENCOUNTER 2019-12-24 16:18 | Outpatient (CLI) | payer MEDICAID ==
--- NOTE | 2019-12-24 11:24 | SLEEP CARE CONSULTATION ---
Information from patient questionnaire entered by Marcia Rizzo. I have reviewed and concur with the information entered by Marcia Rizzo. This document represents the service I personally performed and the decisions made by , Abbi Redman ARNP. History of Present Illness Service Date and Time: 12/24/2019 1020 Initial [place] Sleepiness Scale score: 13 Current [place] Sleepiness Scale score: 11 Additional HPI information: CHELI EVANS returns for follow up via Telehealth video for results of the recently performed polysomnography. He was found to have moderate obstructive sleep apnea with an AHI 16.2 and a jacoby oxygen saturation of 84%. His supine AHI was 40.5 and his non-supine AHI was 4.32. I explained the pathophysiology behind obstructive sleep apnea. We then spent quite a bit of time discussing different treatment options. For mild obstructive sleep apnea, surgery and oral appliance are alternatives to nasal CPAP therapy but in moderate or severe cases, nasal CPAP is the most effective and reliable treatment. Because apnea is primarily in supine position, then positional management therapy could be effective. Methods discussed such as positioning with pillows, using a T-shirt with tennis balls in the back, and shown commercial products that have a pillow format on back to prevent supine sleep. I reviewed the impact of weight changes on sleep apnea and strongly recommended losing weight. After some discussion, the patient opted to go with the nasal CPAP therapy. Nasal autoCPAP set at 4-15 cmH20 will be ordered with rationale explained. A manual titration study will be ordered if unable to find optimal pressure with office adjustments. I explained how CPAP machine works and what to expect when using the machine. Using CPAP every night in order to get used to it was emphasized. Patient advised to put CPAP mask on before getting into bed so as not to fall asleep without CPAP. To assist acclimation to CPAP use, it could also be used for a short time during day while reading or watching TV. The patient was instructed to call the CPAP supplier to discuss any mechanical problem that may occur. If the mask given is uncomfortable or is difficult to keep on through the night even with adjustment, contact the CPAP supplier as many will replace with another mask style if notified before 30 days. If snoring or perceives is not getting enough air or too much air from the machine, notify this office. Patient does not drink alcohol. Patient was cautioned about risks of drowsy driving until sleepiness symptoms resolve. Sleep Study - Results Type of Sleep Study: Polysomnography Year and Where: 11/2019 [facility] Polysomnography/Home Sleep Study results: IMPRESSION: The quality of the study is good. The patient had slightly reduced sleep efficiency due to sleep onset insomnia. The sleep architecture was abnormal for sleep fragmentation and reduced amount of time spent in slow wave sleep (N3). Respiratory monitoring showed moderate obstructive sleep apnea- hypopnea (AHI = 16.2) associated with frequent arousals, oxyhemoglobin desaturation and mild hypoxia (jacoby oxygen saturation of 84%). The respiratory events occurred almost exclusively during supine sleep (supine AHI = 40.5; non-supine = 4.32). Snore was moderate in intensity. There was severe periodic leg movement of sleep not contributing to the sleep fragmentation. Cardiac rhythm was normal sinus rhythm without significant arrhythmia. No abnormal behavior (parasomnia) observed during the night. Allergies and Home Medications Drug allergies reviewed: Yes (antiviral) Home medication list reviewed: Yes (no changes) Review of Systems Review of systems same as previous: Yes (no changes) Physical Exam Vital signs obtained and entered by: Telehealth visit, no vitals obtained Height: 6 ft Impression and Plan 1. Obstructive Sleep Apnea-Hypopnea Syndrome, moderate, with lowest oxygen saturation of 84%. Obviously this is the cause of the patients symptoms of unrefreshed sleep, and excessive daytime sleepiness. Positive pressure therapy could benefit his arrhythmia, depression, history of GERD, and psoriasis. As mentioned above, the patient will be started on nasal autoCPAP therapy with pressure set at 4-15 cmH2O. A manual titration study will be completed if unable to find optimal treatment pressure with office adjustments. Compliance guidelines also reviewed. A copy of compliance guidelines will be given for reference at check out. Because the apnea is more severe supine, I instructed to avoid sleeping supine using pillow positioning until able to start CPAP use. 2. Periodic limb movement, severe, that did not fragment patients sleep. Periodic limb movement of sleep (PLMS) is characterized by episodes of repetitive limb movements that occur during sleep and usually involve the lower limbs. The etiology is unknown but can be associated with restless leg syndrome (RLS), neuropathy, spinal cord diseases, kidney disease, rheumatological disorders, narcolepsy, obstructive sleep apnea, and REM sleep behavior disorder. Other factors that can increase PLMS and/or RLS are heredity and iron deficiency as reflected by a low serum ferritin level below 50 to 75mcg / L. Several medications can precipitate or aggravate PLMS such as selective serotonin re-up take inhibitor antidepressants, tricyclic antidepressants, lithium, and dopamine receptor antagonists with the exception of bupropion. Caffeine can also aggravate PLMS and should be avoided. Sleep hygiene methods can also improve sleep as well as lifestyle changes such as regular exercise. Patient was advised that no treatment is needed at this time. If symptoms increase, then further evaluation is indicated. * Nasal auto CPAP therapy, pressure at 4-15 cm H2O. * Follow up with PCP as needed for severe PLMs * Attempt to lose weight. * Avoid alcohol consumption near bedtime. * Avoid supine sleep until using CPAP. * The patient is again cautioned about driving until sleepiness completely resolves. * Return one month after CPAP obtained. I will assess response to therapy and compliance at that time. Counseling Topics: Weight loss health impact Visit Type: Telehealth Phone Video Type: Doximity Patient Location: Home Location of Provider: Home Patient agrees and consents to this telehealth visit type: Yes Patient agrees to have their insurance billed: Yes Time Spent with Patient (minutes): 21 Provider Statement: I spent 100% of the Telehealth Phone Call with the patient with greater than 50% spent counseling the patient and coordination of care.
== END 2019-12-24 16:19 | disposition home or self-care (01) ==
LOC: SC 16:18
PROVIDERS: ATTEND Nurse Practitioner Family
DX: G47.33 Obstructive sleep apnea (adult) (pediatric) (principal); G47.61 Periodic limb movement disorder

== ENCOUNTER 2020-05-31 11:21 | Emergency (ER) | payer MEDICAID ==
--- NOTE | 2020-05-31 12:33 | ED Physician Documentation ---
History of Present Illness - Stated complaint Stated Complaint: LT LEG PX - Chief complaint Chief Complaint: Ext Problem - History obtained from History obtained from: Patient - History of Present Illness Timing: How many weeks ago (1) Pain level max: 4 Pain level now: 3 - Additonal information Additional information: Patient is a 50-year-old male who presents to the emergency department with Left lower extremity redness and swelling for the past week. He was seen at the urgent care walk-in clinic on Sunday and started on an antibiotic. He states he is not improving today. He states he did have subjective fever and chills last week. Has never had similar swelling in the past. Review of Systems Constitutional: reports: Fever (subjective), Chills Nose: denies: Rhinorrhea / runny nose, Congestion Throat: denies: Sore throat Respiratory: denies: Cough GI: denies: Abdominal Pain, Nausea, Vomiting, Diarrhea Musculoskeletal: denies: Neck pain, Back pain Neurologic: denies: Headache PD PAST MEDICAL HISTORY - Past Medical History Past Medical History: Yes Cardiovascular: Atrial fibrillation Respiratory: None Neuro: None Endocrine/Autoimmune: None GI: None : None HEENT: None Psych: None Musculoskeletal: Gout Derm: None - Past Surgical History Past Surgical History: Yes - Present Medications Home Medications: Ambulatory Orders Medication Instructions Recorded Confirmed Sulfamethox/Trimeth 800/160 1 tablet PO BID 05/31/20 05/31/20 [Bactrim Ds] cephALEXin [Keflex] 500 mg PO Q6H #40 cap 05/31/20 - Allergies Allergies/Adverse Reactions: Allergies Allergy/AdvReac Type Severity Reaction Status Date / Time wheat Allergy Unknown Verified 05/31/20 11:26 antiviral AdvReac Headache Uncoded 09/09/17 19:41 - Social History Does the pt smoke?: No Smoking Status: Never smoker Does the pt drink ETOH?: No Does the pt have substance abuse?: No - Immunizations Immunizations are current?: Yes Immunizations: TDAP current <10years - POLST Patient has POLST: No PD ED PE NORMAL - Vitals Vital signs reviewed: Yes - General General: Alert and oriented X 3, No acute distress - HEENT HEENT: Moist mucous membranes - Neck Neck: Supple, no meningeal sign - Cardiac Cardiac: RRR, Strong equal pulses - Respiratory Respiratory: No respiratory distress, Clear bilaterally - Abdomen Abdomen: Soft, Non tender, Non distended - Derm Derm: Warm and dry - Extremities Extremities: Other (Left lower extremity swelling and erythema from the wound to the foot. This is circumferential. Mild warmth. Light pink in color. Mild calf tenderness. There is a light erythematous streak going up the inner thigh as well.) - Neuro Neuro: Alert and oriented X 3 - Psych Psych: Normal mood, Normal affect Results - Vitals Vitals: Vital Signs - 24 hr 05/31/20 05/31/20 11:27 13:51 Temperature 36.5 C 36.8 C Heart Rate 82 64 Respiratory 18 18 Rate Blood Pressure 140/75 H 119/82 H O2 Saturation 98 97 Oxygen O2 Source Room air - Labs Labs: Laboratory Tests 05/31/20 05/31/20 05/31/20 12:40 12:40 12:40 WBC 5.2 RBC 5.06 Hgb 15.9 Hct 47.0 MCV 92.9 MCH 31.4 H MCHC 33.8 RDW 12.2 Plt Count 252 MPV 9.7 Neut # (Auto) 3.6 Lymph # (Auto) 1.2 L [place] # (Auto) 0.3 Eos # (Auto) 0.1 Baso # (Auto) 0.0 Absolute Nucleated RBC 0.00 Nucleated RBC % 0.0 ESR 16 Sodium 136 Potassium 4.3 Chloride 106 Carbon Dioxide 21 Anion Gap 9.0 BUN 18 Creatinine 1.1 Estimated GFR (MDRD) 70 L Glucose 104 H Calcium 9.2 C-Reactive Protein 1.9 H - Rads (name of study) duplex US LLE Radiology: Prelim report reviewed, EMP read contemporaneously, See rad report (normal. no DVT) PD MEDICAL DECISION MAKING - ED course Complexity details: reviewed results, re-evaluated patient, considered differential, d/w patient ED course: 50-year-old male with left lower extremity redness and swelling. No DVT on ultrasound. He has only on Bactrim, we will add Keflex to his antibiotic coverage. Given a dose of Rocephin IM. Patient is well-appearing, nontoxic. Afebrile. No evidence of sepsis. Patient counseled regarding signs and symptoms for which I believe and urgent re-evaluation would be necessary. Patient with good understanding of and agreement to plan and is comfortable going home at this time This document was made in part using voice recognition software. While efforts are made to proofread this document, sound alike and grammatical errors may occur. Departure - Departure Disposition: 01 Home, Self Care Clinical Impression: Cellulitis Qualifiers: Site of cellulitis: extremity Site of cellulitis of extremity: lower extremity Laterality: left Qualified Code(s): L03.116 - Cellulitis of left lower limb Condition: Good Instructions: ED Infec Skin Cellulitis Follow-Up: your,doctor in 3 days for recheck [Other] Prescriptions: cephALEXin [Keflex] 500 mg PO Q6H #40 cap Comments: Continue your current antibiotics and add the cephalexin. Follow-up with your doctor in 3 to 4 days for recheck. Return if you worsen. This should improve over the next 24 to 48 hours. There is no DVT on your ultrasound today. Discharge Date/Time: 05/31/20 14:14
[2020-05-31 12:50] LABS: BASOPHILS % (AUTO) 0.4 %; EOSINOPHILS # (AUTO) 0.1 10^3/uL (0.0-0.7); EOSINOPHILS % (AUTO) 2.3 %; HGB - HEMOGLOBIN 15.9 g/dL (14.0-18.0); LYMPHOCYTES # (AUTO) 1.2 10^3/uL (1.5-3.5); LYMPHOCYTES % (AUTO) 22.2 %; MEAN CORPUSCULAR HEMOGLOBIN 31.4 pg (27.0-31.0); MEAN CORPUSCULAR HGB CONC 33.8 g/dL (32.0-36.0); MEAN CORPUSCULAR VOLUME 92.9 fL (80.0-94.0); MEAN PLATELET VOLUME 9.7 fL (7.4-11.4); MONOCYTES # (AUTO) 0.3 10^3/uL (0.0-1.0); MONOCYTES % (AUTO) 6.2 %; NEUTROPHILS # (AUTO) 3.6 10^3/uL (1.5-6.6); NEUTROPHILS % (AUTO) 68.7 %; PLT - PLATELET COUNT 252 10^3/uL (130-450); RED BLOOD COUNT 5.06 10^6/uL (4.70-6.10); RED CELL DISTRIBUTION WIDTH 12.2 % (12.0-15.0); WHITE BLOOD COUNT 5.2 x10^3/uL (4.8-10.8)
--- NOTE | 2020-05-31 13:18 | Ultrasound Report ---
PROCEDURE: Duplex Ext Veins Left INDICATIONS: LLE redness, swelling TECHNIQUE: Real-time imaging, as well as color and pulse Doppler interrogation, were performed of the lower extr emity deep veins from the inguinal ligament to the popliteal fossa. COMPARISON: None. FINDINGS: The deep veins are normally compressible, and free of intraluminal thrombus. Color and pu lse Doppler demonstrate normal phasic intraluminal flow. There is normal augmentation response to di stal compression maneuver. IMPRESSION: 1. No sonographic evidence of DVT in the left lower extremity. 2. Preliminary results conveyed by the slot attendant to the ordering provider. Reviewed by: Ida Livingston MD on 05/31/2020 12:17 PM JIM Approved by: Ida Livingston MD on 05/31/2020 12:17 PM JIM Station ID: [id number]
[2020-05-31 13:23] LABS: CALCIUM 9.2 mg/dL (8.5-10.3); CREATININE 1.1 mg/dL (0.6-1.2); CRP - C-REACTIVE PROTEIN 1.9 mg/dL (0-1.0); POTASSIUM 4.3 mmol/L (3.5-5.0)
[2020-05-31] MEDS ORDERED: LIDOCAINE 1% 2 ML VIAL MC ONE (13:37)
[2020-05-31] MEDS ORDERED: cefTRIAXone 1 GM VIAL IM STA (13:37)
[2020-05-31 13:51] VITALS: BP 119/82
--- OUTSIDE RECORDS SUMMARY | 2020-06-02 03:14 | EXTERNAL MEDICAL SUMMARY RPT | Continuity of Care Document ---
:1970 Demographics Phone Unavailable Preferred Language Unknown Marital Status Unknown [employer] Affiliation Unknown Race Unknown Ethnic Group Unknown Author Organization [place] Address [address] [phone] Phone Social History date description facility [phone]
--- OUTSIDE RECORDS SUMMARY | 2020-06-02 03:15 | EXTERNAL MEDICAL SUMMARY RPT | Continuity of Care Document ---
:1970 Demographics Phone Unavailable Preferred Language Unknown Marital Status Unknown [employer] Affiliation Unknown Race Unknown Ethnic Group Unknown Author Organization [place] Address [address] [phone] Phone Social History date description facility [phone]
== END 2020-05-31 14:14 | disposition home or self-care (01) ==
LOC: ED 11:21
DX: L03.116 Cellulitis of left lower limb (principal)
CPT/HCPCS: 36415; 80048; 85025; 85651; 86140; 96372; 99284

== ENCOUNTER 2021-05-03 08:07 | Outpatient (CLI) | payer MEDICAID ==
[2021-05-03 12:19] LABS: ESTIMATED AVERAGE GLUCOSE 105 mg/dL (70-100); HEMOGLOBIN A1c% 5.3 % (4.27-6.07)
[2021-05-03 12:43] LABS: BASOPHILS % (AUTO) 0.4 %; EOSINOPHILS # (AUTO) 0.1 10^3/uL (0.0-0.7); EOSINOPHILS % (AUTO) 2.1 %; HCT - HEMATOCRIT 45.6 % (42.0-52.0); HGB - HEMOGLOBIN 15.5 g/dL (14.0-18.0); LYMPHOCYTES # (AUTO) 1.5 10^3/uL (1.5-3.5); LYMPHOCYTES % (AUTO) 32.3 %; MEAN CORPUSCULAR HEMOGLOBIN 31.2 pg (27.0-31.0); MEAN CORPUSCULAR VOLUME 91.8 fL (80.0-94.0); MEAN PLATELET VOLUME 10.1 fL (7.4-11.4); MONOCYTES # (AUTO) 0.3 10^3/uL (0.0-1.0); MONOCYTES % (AUTO) 7.2 %; NEUTROPHILS # (AUTO) 2.7 10^3/uL (1.5-6.6); PLT - PLATELET COUNT 238 10^3/uL (130-450); RED BLOOD COUNT 4.97 10^6/uL (4.70-6.10); RED CELL DISTRIBUTION WIDTH 12.6 % (12.0-15.0); THYROID STIMULATING HORMONE 6.51 uIU/mL (0.34-5.60); WHITE BLOOD COUNT 4.7 x10^3/uL (4.8-10.8)
[2021-05-03 12:45] LABS: FREE T4 (FREE THYROXINE) 0.97 ng/dL (0.58-1.64)
[2021-05-03 12:46] LABS: ALBUMIN 4.2 g/dL (3.2-5.5); ALBUMIN/GLOBULIN RATIO 1.7 (1.0-2.2); ALKALINE PHOSPHATASE 55 IU/L (42-121); ALT ALANINE AMINOTRANSFERASE 40 IU/L (10-60); AST ASPARTATE AMINOTRANSFERASE 24 IU/L (10-42); BILIRUBIN,TOTAL 0.7 mg/dL (0.2-1.0); BUN - BLOOD UREA NITROGEN 22 mg/dL (6-20); CALCIUM 9.1 mg/dL (8.5-10.3); CARBON DIOXIDE - CO2 27 mmol/L (21-32); CHLORIDE 101 mmol/L (101-111); CHOL/HDL RATIO 4.1 (<5.0); CHOLESTEROL 207 mg/dL; GFR - MDRD 78 (>89); GLUCOSE 98 mg/dL (70-100); HDL CHOLESTEROL 50 mg/dL; LDL CHOLESTEROL,CALCULATED 141 mg/dL; LDL/HDL RATIO 2.8 (<3.6); POTASSIUM 4.2 mmol/L (3.5-5.0); SODIUM 138 mmol/L (135-145); TOTAL PROTEIN 6.7 g/dL (6.7-8.2); TRIGLYCERIDES 79 mg/dL; URIC ACID 6.6 mg/dL (2.6-7.2); VLDL CHOLESTEROL 16 mg/dL
== END 2021-05-03 08:08 | disposition home or self-care (01) ==
LOC: LAB.N 08:07
PROVIDERS: ATTEND Nurse Practitioner
DX: R94.6 Abnormal results of thyroid function studies (principal); R53.83 Other fatigue; Z13.220 Encounter for screening for lipoid disorders; Z12.5 Encounter for screening for malignant neoplasm of prostate; M10.9 Gout, unspecified; Z13.1 Encounter for screening for diabetes mellitus
CPT/HCPCS: 36415; 80053; 80061; 83036; 83721; 84153; 84439; 84443; 84550; 85025

== ENCOUNTER 2021-06-13 16:58 | Outpatient (CLI) | payer MEDICAID ==
--- NOTE | 2021-06-14 08:17 | Ultrasound Report ---
PROCEDURE: Abdomen Limited INDICATIONS: UMBILICAL HERNIA TECHNIQUE: Real-time focused scanning was performed of the abdomen, with image documentation. COMPARISON: None. FINDINGS: There is a partially reducible fat-containing umbilical versus periumbilical at the midlin e area of interest. The fascial defect measures approximately 1.9 cm. The hernia sac measures up to 4 .5 cm in maximum dimension. IMPRESSION: Partially reducible fat-containing umbilical versus periumbilical hernia. Reviewed by: Domo Nguyen MD on 06/14/2021 8:16 AM PDT Approved by: Domo Nguyen MD on 06/14/2021 8:16 AM PDT Station ID: [id number]
== END 2021-06-13 16:59 | disposition home or self-care (01) ==
LOC: DI 16:58
PROVIDERS: ATTEND Nurse Practitioner
DX: K42.9 Umbilical hernia without obstruction or gangrene (principal)

== ENCOUNTER 2023-05-10 17:14 | Outpatient (CLI) | payer MEDICAID ==
--- NOTE | 2023-05-11 20:17 | XRAY Report ---
PROCEDURE: Chest 2V INDICATIONS: ACUTE COUGH TECHNIQUE: 2 views of the chest were acquired. COMPARISON: Chest x-ray 05/16/2013 FINDINGS: Surgical changes and devices: None. Lungs and pleura: No pleural effusions or pneumothorax. Lungs are clear. Mediastinum: Mediastinal contours appear normal. Heart size is normal. Bones and chest wall: No suspicious bony lesions. Overlying soft tissues appear unremarkable. IMPRESSION: No acute cardiopulmonary process. Reviewed by: Aaliyah Eugene MD on 05/11/2023 8:16 PM PDT Approved by: Aaliyah Eugene MD on 05/11/2023 8:16 PM PDT Station ID: [id number]
== END 2023-05-10 17:15 | disposition home or self-care (01) ==
LOC: DI 17:14
PROVIDERS: ATTEND Registered Nurse
DX: R05.1 Acute cough (principal); R06.1 Stridor; R06.2 Wheezing; R60.0 Localized edema